=== PATIENT | female | born 1955 | race Caucasian/White ===

== ENCOUNTER 2021-07-18 16:41 | Emergency (ER) | payer BC ==
[~2021-07-18] VITALS: Ht 160 cm; Wt 84.4 kg
--- NOTE | 2021-07-18 16:50 | NUR ---
BIBA TAKEN TO BED 12
[2021-07-18 16:52] VITALS: BP 173/95
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
[2021-07-18] MEDS ORDERED: KETOROLAC 30 MG/ML VIAL IM ONE (17:10)
[2021-07-18] MEDS ORDERED: diazePAM 5 MG TAB PO ONE (17:10)
--- NOTE | 2021-07-18 17:45 | NUR ---
PATIENT TAKEN TO CT VIA W/C.
[2021-07-18] MEDS ORDERED: NAPR-54 PO (17:47)
[2021-07-18] MEDS ORDERED: LID5T TP (17:47)
--- NOTE | 2021-07-18 18:01 | NUR ---
PT RETURNED FROM CT
[2021-07-18 18:55] VITALS: BP 138/80
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
== END 2021-07-18 18:55 | disposition home or self-care (01) ==
LOC: MED 16:41
DX: S16.1XXA Strain of muscle, fascia and tendon at neck level, initial encounter (principal); R51.9 Headache, unspecified; I10 Essential (primary) hypertension; E07.9 Disorder of thyroid, unspecified; F32.9 Major depressive disorder, single episode, unspecified; F41.9 Anxiety disorder, unspecified; Z90.49 Acquired absence of other specified parts of digestive tract; Z98.890 Other specified postprocedural states; Z79.899 Other long term (current) drug therapy; V49.49XA Driver injured in collision with other motor vehicles in traffic accident, initial encounter; Y93.89 Activity, other specified; Y92.89 Other specified places as the place of occurrence of the external cause; Y99.8 Other external cause status
CPT/HCPCS: 70450; 72125; 96372; 99285; J1885